=== PATIENT | female | born 1985 | race African-American/Black ===

== ENCOUNTER 2018-01-12 21:57 | Emergency (ER) | payer SELFPAY ==
[~2018-01-12] VITALS: Ht 170.2 cm; Wt 52.3 kg
[~2018-01-12 21:57] MED LIST: IRON325T2 OR; METH500T3 PO; VICOTAB4 PO
[2018-01-12 22:03] VITALS: BP 102/63; PULSE 74; RESP 14; TEMP 98.3; O2SAT 99
== END 2018-01-12 22:55 | disposition left against medical advice (07) ==
LOC: PHED 21:57
DX: R39.9 Unspecified symptoms and signs involving the genitourinary system (principal)
CPT/HCPCS: 99281